=== PATIENT | male | born 1975 | race Caucasian/White ===

== ENCOUNTER 2018-07-14 16:11 | Emergency (ER) | payer OTHER ==
[~2018-07-14] VITALS: Ht 182.9 cm; Wt 106.8 kg
[2018-07-14 16:12] VITALS: BP 135/93
[2018-07-14] MEDS ORDERED: TETRACAINE 0.5% OPHTH SOLN 4ML OD ONE (16:45)
[2018-07-14] MEDS ORDERED: FLUORESCEIN OPHTH 1 MG STRIP OD ONE (16:45)
[2018-07-14] MEDS ORDERED: ERYTOIN8 OD (17:10)
[2018-07-14] MEDS ORDERED: PATA2.5S OD (17:10)
== END 2018-07-14 17:25 | disposition home or self-care (01) ==
LOC: M ED 16:11
DX: H10.11 Acute atopic conjunctivitis, right eye (principal)